=== PATIENT | male | born 1955 | race African-American/Black ===

== ENCOUNTER 2016-12-15 12:37 | Day surgery (SDC) | END 2016-12-15 16:20 | disposition home or self-care (01) | DX: Z12.11 Encounter for screening for malignant neoplasm of colon (principal); K63.5 Polyp of colon; K64.8 Other hemorrhoids; Z91.013 Allergy to seafood | CPT/HCPCS: 45380; 45390; 88305; Z7610 ==

== ENCOUNTER 2017-09-21 09:58 | Emergency (ER) | payer OTHER ==
[~2017-09-21] VITALS: Ht 152.4 cm; Wt 61.0 kg
[~2017-09-21 09:58] MED LIST: NAPR-688 PO
[2017-09-21 10:04] VITALS: Ht 152.4 cm; Wt 61.0 kg
[2017-09-21] MEDS ORDERED: LIDOCAINE 1% (MDV) 20 ML INJ SC ONE (12:00)
--- NOTE | 2017-09-21 12:03 | ERD ---
ER Documentation Chief Complaint Chief Complaint POST OP WOUND CHECK TO ABD AREA HPI 62-year-old male, with history of colon cancer 2 years ago, presents complaining of pain, induration and erythema on his abdominal wall for the last 2 weeks that is progressively getting worse. The patient is concerned about a possible infection of surgical sutures. Denies fevers, chills. ROS SYSTEMIC symptoms: no fever, chills, no night sweats, no weight loss EYE symptoms: No blurred vision, no eye discharge OTOLARYNGEAL symptoms: No hearing loss. No ear pain, no sore throat CARDIOVASCULAR symptoms: No chest pain or discomfort, no palpitations. PULMONARY symptoms: No dyspnea, no cough, no wheezing. GASTROINTESTINAL symptoms: No abdominal pain, no nausea, no vomiting, no diarrhea MUSCULOSKELETAL symptoms: No arthralgias, no muscle aches. NEUROLOGY symptoms: No confusion, no syncope, no numbness or tingling. SKIN no rashes All systems reviewed and are negative except as per history of present illness. Medications Home Meds Active Scripts Hydrocodone/Acetaminophen ([place] 5-325 Tablet) 1 Each Tablet, 1 TAB PO Q6H Y for PAIN, #12 TAB Prov:CIERRA MCDONALD MD 09/21/17 Cephalexin* (Keflex*) 500 Mg Capsule, 500 MG PO BID for 5 Days, CAP Prov:CIERRA MCDONALD MD 09/21/17 Sulfamethoxazole/Trimethoprim* (Bactrim Ds* Tablet) 1 Each Tablet, 1 TAB PO BID for 7 Days, TAB Prov:CIERRA MCDONALD MD 09/21/17 Naproxen* (Naproxen*) 500 Mg Tablet, 500 MG PO BID Y for PAIN, #20 TAB Prov:CHANDAN RIVERA DO 07/26/15 Allergies Allergies: Coded Allergies: shellfish derived (Verified Adverse Reaction, Severe, ITCHING, 02/18/16) PMhx/Soc History of Surgery: Yes (colon resection ) Anesthesia Reaction: No Hx Neurological Disorder: No Hx Respiratory Disorders: No Hx Cardiac Disorders: No Hx Psychiatric Problems: No Hx Miscellaneous Medical Probl: Yes (COLON CA) Hx Alcohol Use: Yes (occasional glass of wine) Hx Substance Use: No Hx Tobacco Use: No Physical Exam Vitals Vital Signs Date Time Temp Pulse Resp B/P Pulse Ox O2 Delivery O2 Flow Rate FiO2 09/21/17 10:04 98.0 75 18 136/76 99 Physical Exam Const: Alert, oriented, in no distress Head: Atraumatic Eyes: Normal Conjunctiva ENT: Normal External Ears, Nose and Mouth. Neck: Full range of motion..~ No meningismus. Resp: Clear to auscultation bilaterally Cardio: Regular rate and rhythm, no murmurs Abd: Soft, non tender, non distended. Normal bowel sounds Skin: 3 cm fluctuant mass with surrounding erythema, induration and tender to palpation, located in the left upper abdominal wall Results 24 hrs Current Medications Medications (Trade) Dose Ordered Sig/Gibran Route PRN Reason Start Time Stop Time Status Last Admin Dose Admin Lidocaine (Xylocaine 1% (Mdv) 20 ml) 5 ml ONCE ONCE SC 09/21/17 12:00 09/21/17 12:01 DC Acetaminophen/ Hydrocodone Bitart ([place] (5/325)) 1 tab ONCE ONCE PO 09/21/17 13:00 09/21/17 13:01 DC 09/21/17 12:57 DIAGNOSTIC IMAGING REPORT Patient: GERRI VALLADARES : 1955 Age: 62 Sex: M MR #: [id number] DOS: 09/21/17 1248 Ordering MD: CIERRA MCDONALD MD Location: [facility] Room/Bed: PROCEDURE: Ultrasound of the soft tissues of the left upper quadrant anterior abdominal wall. CLINICAL INDICATION: Palpable lesion in the soft tissues of the left upper quadrant anterior abdominal wall. TECHNIQUE: High-resolution sonography of the soft tissues of the left upper quadrant anterior abdominal wall at the site of the palpable lesion was performed in the axial and sagittal planes. COMPARISON: None FINDINGS: There is no fluid collection or mass in the soft tissues of the left upper quadrant anterior abdominal wall. There is no abnormality at the site of the palpable lesion. IMPRESSION: 1. No abnormality at the site of the palpable lesion in the soft tissues of the left upper quadrant anterior abdominal wall. 2. Any further management regarding the palpable lesion should be based on clinical grounds. RPTAT: QQ .Frantz Light MD, MD Date Time Electronically viewed and signed by .Frantz Light MD, MD on 09/21/2017 13:55 .R/ CC: CIERAR MCDONALD MD Procedures/[facility] 62 y/o male patient with history of colon cancer, presents to the ED c/o painful lump on the abdominal wall for 2 weeks. Vital signs stable, Physical exam revealed an indurated, fluctuant mass in subcutaneous tissue of epigastric area. Differential diagnosis include but not limited to: cellulite, abscess, tumor, hernia . Soft tissue US: There is no fluid collection or mass in the soft tissues of the left upper quadrant anterior abdominal wall. There is no abnormality at the site of the palpable lesion. IMPRESSION: 1. No abnormality at the site of the palpable lesion in the soft tissues of the left upper quadrant anterior abdominal wall. 2. Any further management regarding the palpable lesion should be based on clinical grounds. Physical examination and clinical presentation consistent most likely with infected inclusion cyst. Abscess Incision and Drainage with irrigation by me: Location: Subcutaneous area of epigastric abdominal Anesthesia: Local 1% lidocaine without epi Technique: Irrigated. Disrupt loculations with probe and hemostat Packing: Half inch Complications: Vascular intact postprocedure 48 hour wound check. Scar minimization instructions given. Patient's skin symptoms have stabilized while they have been evaluated in the department and are appropriate for outpatient care and work up. During the ED course the patient received treatment with norco presenting overall improvement of the pain. Results and medical impression discussed with patient who agrees with management. The patient will be discharged home with a Rx for antibiotics and pain medication Side effects of prescribed narcotic medications (drowsiness, constipation, habituation) were reviewed. Side effects of prescribed NSAID medication (GI distress, edema, bleeding, HTN) were reviewed. If symptoms persist, worsen or new symptoms develop, then patient is instructed to follow-up with the primary care provider. If the patient is unable to see the primary care provider, then return to the ED immediately. Departure Diagnosis: Primary Impression: Infected epithelial inclusion cyst Condition: Stable Additional Instructions: Thank you very much for allowing us to participate in your care. Your health and safety is our top priority at [facility]. Have prescriptions filled and follow precisely the directions on the label. Follow-up with primary care provider during the next 4 days and bring all the information and medications prescribed. If illness has not improved in 2 days, then make an appointment with primary care provider. If the provider is unavailable, return to the Emergency Department immediately. CIERRA MCDONALD MD Sep 21, 2017 12:03
--- NOTE | 2017-09-21 12:03 | ERD ---
ER Documentation Chief Complaint Chief Complaint POST OP WOUND CHECK TO ABD AREA HPI 62-year-old male, with history of colon cancer 2 years ago, presents complaining of pain, induration and erythema on his abdominal wall for the last 2 weeks that is progressively getting worse. The patient is concerned about a possible infection of surgical sutures. Denies fevers, chills. ROS SYSTEMIC symptoms: no fever, chills, no night sweats, no weight loss EYE symptoms: No blurred vision, no eye discharge OTOLARYNGEAL symptoms: No hearing loss. No ear pain, no sore throat CARDIOVASCULAR symptoms: No chest pain or discomfort, no palpitations. PULMONARY symptoms: No dyspnea, no cough, no wheezing. GASTROINTESTINAL symptoms: No abdominal pain, no nausea, no vomiting, no diarrhea MUSCULOSKELETAL symptoms: No arthralgias, no muscle aches. NEUROLOGY symptoms: No confusion, no syncope, no numbness or tingling. SKIN no rashes All systems reviewed and are negative except as per history of present illness. Medications Home Meds Active Scripts Hydrocodone/Acetaminophen ([place] 5-325 Tablet) 1 Each Tablet, 1 TAB PO Q6H Y for PAIN, #12 TAB Prov:CIERRA MCDONALD MD 09/21/17 Cephalexin* (Keflex*) 500 Mg Capsule, 500 MG PO BID for 5 Days, CAP Prov:CIERRA MCDONALD MD 09/21/17 Sulfamethoxazole/Trimethoprim* (Bactrim Ds* Tablet) 1 Each Tablet, 1 TAB PO BID for 7 Days, TAB Prov:CIERRA MCDONALD MD 09/21/17 Naproxen* (Naproxen*) 500 Mg Tablet, 500 MG PO BID Y for PAIN, #20 TAB Prov:CHANDAN RIVERA DO 07/26/15 Allergies Allergies: Coded Allergies: shellfish derived (Verified Adverse Reaction, Severe, ITCHING, 02/18/16) PMhx/Soc History of Surgery: Yes (colon resection ) Anesthesia Reaction: No Hx Neurological Disorder: No Hx Respiratory Disorders: No Hx Cardiac Disorders: No Hx Psychiatric Problems: No Hx Miscellaneous Medical Probl: Yes (COLON CA) Hx Alcohol Use: Yes (occasional glass of wine) Hx Substance Use: No Hx Tobacco Use: No Physical Exam Vitals Vital Signs Date Time Temp Pulse Resp B/P Pulse Ox O2 Delivery O2 Flow Rate FiO2 09/21/17 10:04 98.0 75 18 136/76 99 Physical Exam Const: Alert, oriented, in no distress Head: Atraumatic Eyes: Normal Conjunctiva ENT: Normal External Ears, Nose and Mouth. Neck: Full range of motion..~ No meningismus. Resp: Clear to auscultation bilaterally Cardio: Regular rate and rhythm, no murmurs Abd: Soft, non tender, non distended. Normal bowel sounds Skin: 3 cm fluctuant mass with surrounding erythema, induration and tender to palpation, located in the left upper abdominal wall Results 24 hrs Current Medications Medications (Trade) Dose Ordered Sig/Gibran Route PRN Reason Start Time Stop Time Status Last Admin Dose Admin Lidocaine (Xylocaine 1% (Mdv) 20 ml) 5 ml ONCE ONCE SC 09/21/17 12:00 09/21/17 12:01 DC Acetaminophen/ Hydrocodone Bitart ([place] (5/325)) 1 tab ONCE ONCE PO 09/21/17 13:00 09/21/17 13:01 DC 09/21/17 12:57 DIAGNOSTIC IMAGING REPORT Patient: GERRI VALLADARES : 1955 Age: 62 Sex: M MR #: [id number] DOS: 09/21/17 1248 Ordering MD: CIERRA MCDONALD MD Location: [facility]TE Room/Bed: PROCEDURE: Ultrasound of the soft tissues of the left upper quadrant anterior abdominal wall. CLINICAL INDICATION: Palpable lesion in the soft tissues of the left upper quadrant anterior abdominal wall. TECHNIQUE: High-resolution sonography of the soft tissues of the left upper quadrant anterior abdominal wall at the site of the palpable lesion was performed in the axial and sagittal planes. COMPARISON: None FINDINGS: There is no fluid collection or mass in the soft tissues of the left upper quadrant anterior abdominal wall. There is no abnormality at the site of the palpable lesion. IMPRESSION: 1. No abnormality at the site of the palpable lesion in the soft tissues of the left upper quadrant anterior abdominal wall. 2. Any further management regarding the palpable lesion should be based on clinical grounds. RPTAT: QQ .Frantz Light MD, MD Date Time Electronically viewed and signed by .Frantz Light MD, MD on 09/21/2017 13:55 .R/ CC: CIERRA MCDONALD MD Procedures/[facility] 62 y/o male patient with history of colon cancer, presents to the ED c/o painful lump on the abdominal wall for 2 weeks. Vital signs stable, Physical exam revealed an indurated, fluctuant mass in subcutaneous tissue of epigastric area. Differential diagnosis include but not limited to: cellulite, abscess, tumor, hernia . Soft tissue US: There is no fluid collection or mass in the soft tissues of the left upper quadrant anterior abdominal wall. There is no abnormality at the site of the palpable lesion. IMPRESSION: 1. No abnormality at the site of the palpable lesion in the soft tissues of the left upper quadrant anterior abdominal wall. 2. Any further management regarding the palpable lesion should be based on clinical grounds. Physical examination and clinical presentation consistent most likely with infected inclusion cyst. Abscess Incision and Drainage with irrigation by me: Location: Subcutaneous area of epigastric abdominal Anesthesia: Local 1% lidocaine without epi Technique: Irrigated. Disrupt loculations with probe and hemostat Packing: Half inch Complications: Vascular intact postprocedure 48 hour wound check. Scar minimization instructions given. Patient's skin symptoms have stabilized while they have been evaluated in the department and are appropriate for outpatient care and work up. During the ED course the patient received treatment with norco presenting overall improvement of the pain. Results and medical impression discussed with patient who agrees with management. The patient will be discharged home with a Rx for antibiotics and pain medication Side effects of prescribed narcotic medications (drowsiness, constipation, habituation) were reviewed. Side effects of prescribed NSAID medication (GI distress, edema, bleeding, HTN) were reviewed. If symptoms persist, worsen or new symptoms develop, then patient is instructed to follow-up with the primary care provider. If the patient is unable to see the primary care provider, then return to the ED immediately. Departure Diagnosis: Primary Impression: Infected epithelial inclusion cyst Condition: Stable Additional Instructions: Thank you very much for allowing us to participate in your care. Your health and safety is our top priority at [facility]. Have prescriptions filled and follow precisely the directions on the label. Follow-up with primary care provider during the next 4 days and bring all the information and medications prescribed. If illness has not improved in 2 days, then make an appointment with primary care provider. If the provider is unavailable, return to the Emergency Department immediately. CIERRA MCDONALD MD Sep 21, 2017 12:03
--- NOTE | 2017-09-21 12:03 | ERD ---
ER Documentation Chief Complaint Chief Complaint POST OP WOUND CHECK TO ABD AREA HPI 62-year-old male, with history of colon cancer 2 years ago, presents complaining of pain, induration and erythema on his abdominal wall for the last 2 weeks that is progressively getting worse. The patient is concerned about a possible infection of surgical sutures. Denies fevers, chills. ROS SYSTEMIC symptoms: no fever, chills, no night sweats, no weight loss EYE symptoms: No blurred vision, no eye discharge OTOLARYNGEAL symptoms: No hearing loss. No ear pain, no sore throat CARDIOVASCULAR symptoms: No chest pain or discomfort, no palpitations. PULMONARY symptoms: No dyspnea, no cough, no wheezing. GASTROINTESTINAL symptoms: No abdominal pain, no nausea, no vomiting, no diarrhea MUSCULOSKELETAL symptoms: No arthralgias, no muscle aches. NEUROLOGY symptoms: No confusion, no syncope, no numbness or tingling. SKIN no rashes All systems reviewed and are negative except as per history of present illness. Medications Home Meds Active Scripts Hydrocodone/Acetaminophen ([place] 5-325 Tablet) 1 Each Tablet, 1 TAB PO Q6H Y for PAIN, #12 TAB Prov:CIERRA MCDONALD MD 09/21/17 Cephalexin* (Keflex*) 500 Mg Capsule, 500 MG PO BID for 5 Days, CAP Prov:CIERRA MCDONALD MD 09/21/17 Sulfamethoxazole/Trimethoprim* (Bactrim Ds* Tablet) 1 Each Tablet, 1 TAB PO BID for 7 Days, TAB Prov:CIERRA MCDONALD MD 09/21/17 Naproxen* (Naproxen*) 500 Mg Tablet, 500 MG PO BID Y for PAIN, #20 TAB Prov:CHANDAN RIVERA DO 07/26/15 Allergies Allergies: Coded Allergies: shellfish derived (Verified Adverse Reaction, Severe, ITCHING, 02/18/16) PMhx/Soc History of Surgery: Yes (colon resection ) Anesthesia Reaction: No Hx Neurological Disorder: No Hx Respiratory Disorders: No Hx Cardiac Disorders: No Hx Psychiatric Problems: No Hx Miscellaneous Medical Probl: Yes (COLON CA) Hx Alcohol Use: Yes (occasional glass of wine) Hx Substance Use: No Hx Tobacco Use: No Physical Exam Vitals Vital Signs Date Time Temp Pulse Resp B/P Pulse Ox O2 Delivery O2 Flow Rate FiO2 09/21/17 10:04 98.0 75 18 136/76 99 Physical Exam Const: Alert, oriented, in no distress Head: Atraumatic Eyes: Normal Conjunctiva ENT: Normal External Ears, Nose and Mouth. Neck: Full range of motion..~ No meningismus. Resp: Clear to auscultation bilaterally Cardio: Regular rate and rhythm, no murmurs Abd: Soft, non tender, non distended. Normal bowel sounds Skin: 3 cm fluctuant mass with surrounding erythema, induration and tender to palpation, located in the left upper abdominal wall Results 24 hrs Current Medications Medications (Trade) Dose Ordered Sig/Gibran Route PRN Reason Start Time Stop Time Status Last Admin Dose Admin Lidocaine (Xylocaine 1% (Mdv) 20 ml) 5 ml ONCE ONCE SC 09/21/17 12:00 09/21/17 12:01 DC Acetaminophen/ Hydrocodone Bitart ([place] (5/325)) 1 tab ONCE ONCE PO 09/21/17 13:00 09/21/17 13:01 DC 09/21/17 12:57 DIAGNOSTIC IMAGING REPORT Patient: GERRI VALALDARES : 1955 Age: 62 Sex: M MR #: [id number] DOS: 09/21/17 1248 Ordering MD: CIERRA MCDONALD MD Location: [facility]TE Room/Bed: PROCEDURE: Ultrasound of the soft tissues of the left upper quadrant anterior abdominal wall. CLINICAL INDICATION: Palpable lesion in the soft tissues of the left upper quadrant anterior abdominal wall. TECHNIQUE: High-resolution sonography of the soft tissues of the left upper quadrant anterior abdominal wall at the site of the palpable lesion was performed in the axial and sagittal planes. COMPARISON: None FINDINGS: There is no fluid collection or mass in the soft tissues of the left upper quadrant anterior abdominal wall. There is no abnormality at the site of the palpable lesion. IMPRESSION: 1. No abnormality at the site of the palpable lesion in the soft tissues of the left upper quadrant anterior abdominal wall. 2. Any further management regarding the palpable lesion should be based on clinical grounds. RPTAT: QQ .Frantz Light MD, MD Date Time Electronically viewed and signed by .Frantz Light MD, MD on 09/21/2017 13:55 .R/ CC: CIERRA MCDONALD MD Procedures/[facility] 62 y/o male patient with history of colon cancer, presents to the ED c/o painful lump on the abdominal wall for 2 weeks. Vital signs stable, Physical exam revealed an indurated, fluctuant mass in subcutaneous tissue of epigastric area. Differential diagnosis include but not limited to: cellulite, abscess, tumor, hernia . Soft tissue US: There is no fluid collection or mass in the soft tissues of the left upper quadrant anterior abdominal wall. There is no abnormality at the site of the palpable lesion. IMPRESSION: 1. No abnormality at the site of the palpable lesion in the soft tissues of the left upper quadrant anterior abdominal wall. 2. Any further management regarding the palpable lesion should be based on clinical grounds. Physical examination and clinical presentation consistent most likely with infected inclusion cyst. Abscess Incision and Drainage with irrigation by me: Location: Subcutaneous area of epigastric abdominal Anesthesia: Local 1% lidocaine without epi Technique: Irrigated. Disrupt loculations with probe and hemostat Packing: Half inch Complications: Vascular intact postprocedure 48 hour wound check. Scar minimization instructions given. Patient's skin symptoms have stabilized while they have been evaluated in the department and are appropriate for outpatient care and work up. During the ED course the patient received treatment with norco presenting overall improvement of the pain. Results and medical impression discussed with patient who agrees with management. The patient will be discharged home with a Rx for antibiotics and pain medication Side effects of prescribed narcotic medications (drowsiness, constipation, habituation) were reviewed. Side effects of prescribed NSAID medication (GI distress, edema, bleeding, HTN) were reviewed. If symptoms persist, worsen or new symptoms develop, then patient is instructed to follow-up with the primary care provider. If the patient is unable to see the primary care provider, then return to the ED immediately. Departure Diagnosis: Primary Impression: Infected epithelial inclusion cyst Condition: Stable Additional Instructions: Thank you very much for allowing us to participate in your care. Your health and safety is our top priority at [facility]. Have prescriptions filled and follow precisely the directions on the label. Follow-up with primary care provider during the next 4 days and bring all the information and medications prescribed. If illness has not improved in 2 days, then make an appointment with primary care provider. If the provider is unavailable, return to the Emergency Department immediately. CIERRA MCDONALD MD Sep 21, 2017 12:03
[2017-09-21] MEDS ORDERED: HYDROCODONE/APAP (5/325) TAB PO ONE (13:00)
--- NOTE | 2017-09-21 13:55 | RADRPT ---
PROCEDURE: Ultrasound of the soft tissues of the left upper quadrant anterior abdominal wall. CLINICAL INDICATION: Palpable lesion in the soft tissues of the left upper quadrant anterior abdom inal wall. TECHNIQUE: High-resolution sonography of the soft tissues of the left upper quadrant anterior abdo nilson wall at the site of the palpable lesion was performed in the axial and sagittal planes. COMPARISON: None FINDINGS: There is no fluid collection or mass in the soft tissues of the left upper quadrant anterior abdomin al wall. There is no abnormality at the site of the palpable lesion. IMPRESSION: 1. No abnormality at the site of the palpable lesion in the soft tissues of the left upper quadrant anterior abdominal wall. 2. Any further management regarding the palpable lesion should be based on clinical grounds. RPTAT: QQ .Frantz Light MD, Date Time Electronically viewed and signed by .Frantz Light MD, on 09/21/2017 13:55 .R/
[2017-09-21] MEDS ORDERED: SULF1TAB31 PO (14:44)
[2017-09-21] MEDS ORDERED: CEPH-443 PO (14:46)
[2017-09-21] MEDS ORDERED: HYDR-906 PO (14:46)
== END 2017-09-21 15:22 | disposition home or self-care (01) ==
LOC: FTE 09:58
DX: L72.0 Epidermal cyst (principal); L08.9 Local infection of the skin and subcutaneous tissue, unspecified; Z85.038 Personal history of other malignant neoplasm of large intestine
CPT/HCPCS: 10060; 76536; Z7502; Z7610

== ENCOUNTER 2017-12-26 12:57 | Day surgery (SDC) | END 2017-12-26 15:47 | disposition home or self-care (01) ==